=== PATIENT | female | born 1970 | race Caucasian/White ===

== ENCOUNTER 2018-07-15 13:11 | Emergency (ER) | payer OTHER ==
[~2018-07-15] VITALS: Ht 149.9 cm; Wt 58.1 kg
[2018-07-15] MEDS ORDERED: NORVASC5 MG (13:41)
== END 2018-07-15 18:37 | disposition home or self-care (01) ==
LOC: ER 13:11
DX: J06.9 Acute upper respiratory infection, unspecified (principal); R09.81 Nasal congestion; R05 Cough; E16.1 Other hypoglycemia